=== PATIENT | female | born 1975 | race Caucasian/White ===

== ENCOUNTER 2017-06-02 18:41 | Emergency (ER) | payer BC ==
[2017-06-02 19:21] VITALS: BP 123/90
--- NOTE | 2017-06-02 19:30 | ED ---
Throat Pain/Nasal Congestion - HPI Summary HPI Summary: 42 yr old female with the complaint of sore throat. She states her daughter tested positive for strep last week. She herself had a negative swab, but throat continues to hurt a lot. She is asking to be treated since strep in the household. she is already on tamiflu for prophylaxis. Denies drooling. - History of Current Complaint Chief Complaint: UCGeneralIllness Time Seen by Provider: 06/02/17 19:23 - Allergies/Home Medications Allergies/Adverse Reactions: Allergies Allergy/AdvReac Type Severity Reaction Status Date / Time codeine AdvReac Vomiting Verified 06/02/17 19:12 Home Medications: Home Medications Dm/Acetaminophen/Doxylamine [Night Time Multi-Symptom] 2 cap PO BEDTIME PRN [History Confirmed 06/02/17] Escitalopram Oxalate [Lexapro 10 mg] 10 mg PO DAILY 06/02/17 [History Confirmed 06/02/17] Ibuprofen TAB* [Advil TAB*] 400 mg PO Q6H PRN 06/02/17 [History Confirmed ] Oseltamivir SUSP 75 MG dose* [Tamiflu SUSP 75 MG dose*] 75 mg PO BID 06/02/17 [ History Confirmed 06/02/17] PMH/Surg Hx/FS Hx/Imm Hx - Surgical History Surgery Procedure, Year, and Place: Tonsilectomy. appy Infectious Disease History: No Infectious Disease History: Denies: Traveled Outside the [place] in Last 30 Days - Family History Known Family History: Positive: None - Social History Occupation: Employed Full-time Lives: With Family Alcohol Use: Weekly Substance Use Type: Reports: None Smoking Status (MU): Never Smoked Tobacco Review of Systems Positive: Sore Throat, Nasal Discharge All Other Systems Reviewed And Are Negative: Yes Physical Exam Triage Information Reviewed: Yes Vital Signs On Initial Exam: Initial Vitals Temp Pulse Resp BP Pulse Ox 98.7 F 84 20 123/90 100 06/02/17 19:15 06/02/17 19:15 06/02/17 19:15 06/02/17 19:15 06/02/17 19:15 Vital Signs Reviewed: Yes Appearance: Positive: Well-Appearing, No Pain Distress Skin: Positive: Warm, Skin Color Reflects Adequate Perfusion Head/Face: Positive: Normal Head/Face Inspection Eyes: Positive: EOMI ENT: Positive: Pharyngeal erythema, Nasal congestion, TMs normal Neck: Positive: Nontender Respiratory/Lung Sounds: Positive: Clear to Auscultation, Breath Sounds Present Cardiovascular: Positive: RRR. Negative: Murmur Abdomen Description: Positive: Nontender Musculoskeletal: Positive: Strength/ROM Intact Neurological: Positive: Sensory/Motor Intact, Alert, Oriented to Person Place, Time, CN Intact II-III Psychiatric: Positive: Normal - Gaines Coma Scale Best Eye Response: 4 - Spontaneous Best Motor Response: 6 - Obeys Commands Best Verbal Response: 5 - Oriented Coma Scale Total: 15 Diagnostics - Vital Signs Vital Signs Temp Pulse Resp BP Pulse Ox 06/02/17 19:15 98.7 F 84 20 123/90 100 - Laboratory Lab Statement: Any lab studies that have been ordered have been reviewed, and results considered in the medical decision making process. EENT Course/Dx - Course Course Of Treatment: 42 yr old with pharyngitis and strep in family. She had neg swab a few days ago. requests coverage for strep throat. Rx for amox granted. - Diagnoses Provider Diagnoses: Pharyngitis, Hypertension Discharge - Discharge Plan Condition: Good Disposition: HOME Prescriptions: Amoxicillin PO (*) [Amoxicillin 500 MG CAP*] 500 mg PO TID #30 cap Patient Education Materials: Pharyngitis (ED), Hypertension (ED) Referrals: Betina Montiel MD [Primary Care Provider] - 2 Days
== END 2017-06-02 19:41 | disposition home or self-care (01) ==
LOC: UCCORT 18:41
DX: J02.9 Acute pharyngitis, unspecified (principal); I10 Essential (primary) hypertension; Z20.89 Contact with and (suspected) exposure to other communicable diseases
CPT/HCPCS: 99212; G0463

== ENCOUNTER 2019-01-07 19:31 | Emergency (ER) | payer BC ==
[2019-01-07 19:56] VITALS: BP 141/76
--- NOTE | 2019-01-07 21:13 | UC ---
Complaint Female HPI - HPI Summary HPI Summary: 4-5 DAYS OF VAGINAL IRRITATION/ITCHING WITH SLIGHT D/C. REPORTS SOME EXTERNAL BURNING WITH URINATION BUT IT FEELS SURFACE. NO DYSURIA, FREQUENCY OR URGENCY. HAVING UNPROTECTED SEX WITH NEW MALE SEX PARTNER PAST 2 MONTHS. STATES ZERO CHANCE OF HE HAS HAD A VASECTOMY. NO FEVER. NO ABDOMINAL PAIN. - History Of Current Complaint Chief Complaint: UCGeneralIllness Stated Complaint: PERSONAL Time Seen by Provider: 01/07/19 20:49 Hx Obtained From: Patient Hx Last Menstrual Period: Dec 24 Onset/Duration: Gradual Onset, Lasting Days, Still Present Timing: Constant Severity Initially: Moderate Severity Currently: Moderate Pain Intensity: 4 Pain Scale Used: 0-10 Numeric Character: Burning Aggravating Factor(s): Nothing Alleviating Factor(s): Nothing Associated Signs And Symptoms: Positive: Vaginal Discharge - Allergies/Home Medications Allergies/Adverse Reactions: Allergies Allergy/AdvReac Type Severity Reaction Status Date / Time codeine AdvReac Vomiting Verified 01/07/19 19:56 PMH/Surg Hx/FS Hx/Imm Hx Psychological History: Depression - Surgical History Surgical History: Yes Surgery Procedure, Year, and Place: Tonsilectomy. appy - Family History Known Family History: Positive: None - Social History Alcohol Use: Weekly Substance Use Type: None Smoking Status (MU): Never Smoked Tobacco - Immunization History Most Recent Influenza Vaccination: DEC 2014 Review of Systems All Other Systems Reviewed And Are Negative: Yes Constitutional: Positive: Negative Skin: Positive: Negative Respiratory: Positive: Negative Cardiovascular: Positive: Negative Gastrointestinal: Positive: Negative Genitourinary: Positive: Vaginal/Penile Itching, Vaginal/Penile Discharge. Negative: Dysuria, Frequency, Urgency Physical Exam Triage Information Reviewed: Yes Appearance: Well-Appearing, No Pain Distress, Well-Nourished Vital Signs: Initial Vital Signs Temp 98.7 F 01/07/19 19:52 Pulse 100 01/07/19 19:52 Resp 20 01/07/19 19:52 BP 141/76 01/07/19 19:52 Pulse Ox 99 01/07/19 19:52 Vital Signs Reviewed: Yes Eyes: Positive: Conjunctiva Clear ENT: Positive: Hearing grossly normal Neck: Positive: Supple Respiratory: Positive: No respiratory distress, No accessory muscle use Cardiovascular: Positive: Pulses Normal Abdomen Description: Positive: Nontender, Soft Pelvic Exam: Positive: External Exam Normal, Bimanual Exam Normal, No Cerv. Motion Tender, No Masses, Discharge - THICK WHITE Musculoskeletal: Positive: No Edema Neurological: Positive: Alert Psychological: Positive: Age Appropriate Behavior Skin: Negative: Rashes Complaint Female Dx - Course Course Of Treatment: EXAM C/W YEAST. WILL TX WITH DIFLUCAN. SWABS SENT FOR VAGINITIS AND GC/ CHLAMYDIA. PT DECLINES BLOOD DRAW FOR HIV AND SYPHILIS. DECLINES URINE TEST. STATES SX DO NOT FEEL LIKE UTI AND PARTNER HAS HAD A VASECTOMY SO NOT CONCERNED ABOUT . WILL F/U IF SX NOT IMPROVING. - Differential Dx/Diagnosis Provider Diagnosis: Yeast vaginitis Discharge ED - Sign-Out/Discharge Documenting (check all that apply): Patient Departure All imaging exams completed and their final reports reviewed: No Studies - Discharge Plan Condition: Stable Disposition: HOME Prescriptions: Fluconazole 150 MG (NF) [Diflucan 150 mg (NF)] 150 mg PO ONCE #2 tab Patient Education Materials: Yeast Infection (ED) Referrals: Betina Montiel MD [Primary Care Provider] - If Needed Additional Instructions: YOUR PRESENTATION IS CONSISTENT WITH YEAST VAGINITIS. TAKE THE DIFLUCAN PRESCRIBED. SWABS SENT TO TEST FOR GONORRHEA, CHLAMYDIA, BACTERIAL VAGINOSIS, TRICHOMONAS WELL YEAST. WE WILL CALL YOU IF YOUR MANAGEMENT NEEDS TO BE CHANGED. - Billing Disposition and Condition Condition: STABLE Disposition: Home
--- NOTE | 2019-01-09 07:33 | ED ---
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 TAKE THE DIFLUCAN PRESCRIBED. SWABS SENT TO TEST FOR GONORRHEA, CHLAMYDIA, BACTERIAL VAGINOSIS, TRICHOMONAS WELL YEAST. WE WILL CALL YOU IF YOUR MANAGEMENT NEEDS TO BE CHANGED. - Billing Disposition and Condition Condition: STABLE Disposition: Home
[2019-01-11 13:40] LABS: Chlamydia trachomatis NAA Negative (Negative); Neisseria gonorrhoeae (GC) NAA Negative (Negative)
== END 2019-01-07 21:28 | disposition home or self-care (01) ==
LOC: UCCORT 19:31
DX: B37.3 Candidiasis of vulva and vagina (principal); Z88.5 Allergy status to narcotic agent
CPT/HCPCS: 87480; 87491; 87510; 87591; 99212; G0463